=== PATIENT | male | born 1995 | race American Indian/Alaskan Native ===

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

== ENCOUNTER 2018-10-01 17:33 | Emergency (ER) | payer SELFPAY ==
[2018-10-01 17:39] VITALS: BP 114/79
--- NOTE | 2018-10-01 20:26 | Emergency Department Report ---
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 He said while he was working, he turned and hit the right side of his head on a hard object causing him to have a headache and some some dizziness. He woke up the following day with a lot of nausea and headache to the right side which they continue to linger that the course of the morning and early afternoon before spontaneous resolution occurred. Today he returned workspace still has a dull headache often normal advised to come to the ED for evaluation. States that he feels like he has improved. No longer having any nausea and denies any concentration issues. No photophobia or phonophobia. She reports no visual disturbances/changes MD Complaint: head injury - Related Data Previous Rx's Medication Instructions Recorded Last Taken Type Acetaminophen/Codeine [Tylenol #3] 1 tab PO Q6H PRN #12 tab 10/23/16 Unknown Rx Ciprofloxacin HCl [Ciprofloxacin 500 mg PO Q12H #14 tab 10/23/16 Unknown Rx TAB] Ibuprofen [Motrin] 600 mg PO Q8H PRN #15 tablet 10/23/16 Unknown Rx Allergies/Adverse reactions: Allergies Allergy/AdvReac Type Severity Reaction Status Date / Time No Known Allergies Allergy Unverified 10/23/16 07:17 ED Review of Systems ROS: Stated complaint: W/C/HEAD INJURY/NAUSEA Other details as noted in HPI Constitutional: denies: chills, fever Eyes: denies: eye pain, eye discharge, vision change ENT: denies: ear pain, throat pain Respiratory: denies: cough, shortness of breath, wheezing Cardiovascular: denies: chest pain, palpitations Endocrine: no symptoms reported Gastrointestinal: denies: abdominal pain, nausea, diarrhea Genitourinary: denies: urgency, dysuria Musculoskeletal: denies: back pain, joint swelling, arthralgia Skin: denies: rash, lesions Neurological: denies: headache, weakness, paresthesias Psychiatric: denies: anxiety, depression Hematological/Lymphatic: denies: easy bleeding, easy bruising ED Past Medical Hx - Past Medical History Previous Medical History?: No - Surgical History Past Surgical History?: No - Social History Smoking Status: Never Smoker Substance Use Type: Alcohol - Medications Home Medications: Home Medications Medication Instructions Recorded Confirmed Last Taken Type Acetaminophen/Codeine [Tylenol #3] 1 tab PO Q6H PRN #12 tab 10/23/16 Unknown Rx Ciprofloxacin HCl [Ciprofloxacin 500 mg PO Q12H #14 tab 10/23/16 Unknown Rx TAB] Ibuprofen [Motrin] 600 mg PO Q8H PRN #15 tablet 10/23/16 Unknown Rx ED Physical Exam - General Limitations: No Limitations General appearance: alert, in no apparent distress - Head Head exam: Present: atraumatic, normocephalic, other (no tenderness with palpation. No swelling or abrasions noted.) - Eye Eye exam: Present: normal appearance, PERRL, EOMI. Absent: periorbital swelling, periorbital tenderness Pupils: Present: normal accommodation - ENT ENT exam: Present: mucous membranes moist - Neck Neck exam: Present: normal inspection - Respiratory Respiratory exam: Present: normal lung sounds bilaterally. Absent: respiratory distress - Cardiovascular Cardiovascular Exam: Present: regular rate, normal rhythm. Absent: systolic murmur, diastolic murmur, rubs, gallop - GI/Abdominal GI/Abdominal exam: Present: soft, normal bowel sounds - Rectal Rectal exam: Present: deferred - Extremities Exam Extremities exam: Present: normal inspection - Back Exam Back exam: Present: normal inspection - Neurological Exam Neurological exam: Present: alert, oriented X3, CN II-XII intact, normal gait, reflexes normal, other (normal finger to nose, normal [id number]. Romberg is negative.). Absent: motor sensory deficit - Psychiatric Psychiatric exam: Present: normal affect, normal mood - Skin Skin exam: Present: warm, dry, intact, normal color. Absent: rash ED Course Vital Signs 10/01/18 17:38 Temperature 97.9 F Pulse Rate 63 Respiratory 18 Rate Blood Pressure 114/79 O2 Sat by Pulse 100 Oximetry - Medical Decision Making 23-year-old male status post blunt trauma to the right side of the head at the turning into an object in hidden from what he describes as quite hard. This was followed up with nausea and lightheadedness and occasional dizziness with this. Which has subsided. She is describing what may have been a concussive syndrome which was developing and now slowly resolving. Assessment involved not engage 7 any strenuous activity in the [place]. Of further head trauma over the next 2 weeks. He seeks to have a work note Critical care attestation.: If time is entered above; I have spent that time in minutes in the direct care of this critically ill patient, excluding procedure time. ED Disposition Clinical Impression: Head injury due to trauma Disposition: DC-01 TO HOME OR SELFCARE Is pt being admited?: No Does the pt Need Aspirin: No Condition: Stable Instructions: Minor Head Injury (ED), Concussion (ED) Referrals: TEOFILO ORTIZ MD [Primary Care Provider] - 3-5 Days Forms: Work/School Release Form(ED)
== END 2018-10-01 20:49 | disposition home or self-care (01) ==
LOC: EEVIPCON 17:33 → ED 17:33
DX: S09.90XA Unspecified injury of head, initial encounter (principal); W22.8XXA Striking against or struck by other objects, initial encounter; Y93.89 Activity, other specified; Y92.89 Other specified places as the place of occurrence of the external cause; Y99.8 Other external cause status
CPT/HCPCS: 99282